=== PATIENT | female | born 1990 | race African-American/Black ===

== ENCOUNTER 2019-03-20 08:35 | Emergency (ER) | payer OTHER ==
--- OUTSIDE RECORDS SUMMARY | 2019-03-20 08:40 | XMS REPORT | Continuity of Care Document ---
:1990 External Reference #:[id number] Author Name ShyannMAXIMINO Mistry-Cde (transmitted by agent of provider Rose Carroll) Address [address], [place] [address] Care Team Providers Name Role Phone Michel Jones III, MD - Internal Care Team Information Area Director Medicine Aaron Sanchez MD - Otolaryngology Care Team Information Area Director [phone] Problems Active Problems Provider Date Neuralgia Angelika Marker, RPA-C Onset: 01/30/2018 Social History Type Date Description Comments Sex Unknown Tobacco Use Start: Unknown Never Smoked Cigarettes Smoking Status Reviewed: 02/05/19 Never Smoked Cigarettes ETOH Use Denies alcohol use Tobacco Use Start: Unknown Patient has never smoked Recreational Drug Use Denies Drug Use Exercise Type/Frequency 08/27/2016 Exercises regularly Used to runs 5x /week On hold now b/o lack of time Allergies, Adverse Reactions, Alerts Description No Known Drug Allergies Medications Active Medications SIG Qnty Indications Ordering Provider Date Tylenol 2 tablets every 4 Unknown 325mg Capsules hours as needed for pain Immunizations CPT Code Status Date Vaccine Lot # [id number] Given 08/27/2016 Meningococcal Immunization [id number] Given 08/27/2016 Varicella (Chicken Pox) Immunization [id number] Given 08/27/2016 Tdap - Tetanus/Diptheria/Acellular Pertussis [id number] Vital Signs Date Vital Result Comment 02/05/2019 3:26pm Height 65.5 inches 5'5.50" Weight 168.00 lb Heart Rate 74 /min BP Systolic 123 mmHg BP Diastolic 84 mmHg O2 % BldC Oximetry 99 % BMI (Body Mass Index) 27.5 kg/m2 Last Menstrual Period [id number] 08/06/2018 4:35pm Height 65.5 inches 5'5.50" Weight 168.00 lb Heart Rate 90 /min BP Systolic Sitting 110 mmHg BP Diastolic Sitting 70 mmHg O2 % BldC Oximetry 99 % BMI (Body Mass Index) 27.5 kg/m2 Results Description No Information Available Procedures Description No Information Available Medical Devices Description No Information Available Encounters Description No Information Available Assessments Date Code Description Provider 02/05/2019 R10.2 Pelvic and perineal pain [address] Plan of Treatment Future Appointment(s):02/10/2019 11:40 am - MAXIMINO Mcgrath at [facility] MAXIM[facility]-[id number] Pelvic and perineal pain Functional Status Description No Information Available Mental Status Description No Information Available Referrals Description No Information Available
[2019-03-20 08:49] VITALS: BP 125/87
--- NOTE | 2019-03-20 09:07 | UC ---
Complaint Female HPI - HPI Summary HPI Summary: 29-year-old female who has had burning on urination and frequency for the past 3 days. She denies any fever or chills. No nausea vomiting or diarrhea. She is sexually active and not on control. Denies any abnormal vaginal discharge. - History Of Current Complaint Chief Complaint: UCGU Stated Complaint: URINARY COMPLAINT Time Seen by Provider: 03/20/19 08:38 Hx Obtained From: Patient Hx Last Menstrual Period: 03/08/19 ?: No Onset/Duration: Gradual Onset Timing: Intermittent Severity Initially: Mild Severity Currently: Mild Pain Intensity: 4 Character: Burning Aggravating Factor(s): Urination Alleviating Factor(s): Nothing Associated Signs And Symptoms: Positive: Negative. Negative: Fever, Back Pain, Vaginal Bleeding/Discharge, Vaginal Discharge, Genital Swelling, Genital Blisters - Allergies/Home Medications Allergies/Adverse Reactions: Allergies Allergy/AdvReac Type Severity Reaction Status Date / Time No Known Allergies Allergy Verified 03/20/19 08:49 PMH/Surg Hx/FS Hx/Imm Hx Previously Healthy: Yes - Surgical History Surgical History: None - Family History Known Family History: Positive: Non-Contributory - Social History Alcohol Use: Occasionally Substance Use Type: None Smoking Status (MU): Never Smoked Tobacco Review of Systems All Other Systems Reviewed And Are Negative: Yes Genitourinary: Positive: Dysuria, Frequency, Other - Patient states she has pelvic pain which is not anything new and she is following up with her [employer] regarding this.. Negative: Vaginal/Penile Burning, Vaginal/Penile Itching, Vaginal/Penile Discharge, Vaginal/Penile Pain, Vaginal/Penile Tenderness Is Patient Immunocompromised?: No Physical Exam Triage Information Reviewed: Yes Appearance: Well-Appearing, No Pain Distress, Well-Nourished Vital Signs: Initial Vital Signs Temp 97.8 F 03/20/19 08:42 Pulse 56 03/20/19 08:42 Resp 12 03/20/19 08:42 BP 125/87 03/20/19 08:42 Pulse Ox 100 03/20/19 08:42 Vital Signs Reviewed: Yes Eyes: Positive: Conjunctiva Clear ENT: Positive: Pharynx normal, TMs normal, Uvula midline Neck: Positive: Supple, Nontender, No Lymphadenopathy Respiratory: Positive: Lungs clear, Normal breath sounds, No respiratory distress, No accessory muscle use Cardiovascular: Positive: RRR, No Murmur, Pulses Normal, Brisk Capillary Refill Abdomen Description: Positive: No Organomegaly, Soft, Other: - Tenderness on palpation in the suprapubic area which patient states is her normal pelvic tenderness for which she is seeking treatment and is not a concern today.. Negative: CVA Tenderness (R), CVA Tenderness (L), Distended, Guarding Bowel Sounds: Positive: Present Musculoskeletal Exam: Normal Neurological Exam: Normal Psychological Exam: Normal Skin Exam: Normal Complaint Female Dx - Course Course Of Treatment: Urinalysis: Positive for urinary tract infection. test: Negative I'm going to treat the patient with Bactrim DS one tab by mouth twice a day 5 days. She refused Pyridium and stated that she was not having any spasms. She is to increase fluids and follow-up in the ER if any fever, chills, back pain, vomiting or worsening symptoms. - Differential Dx/Diagnosis Provider Diagnosis: UTI (urinary tract infection) Discharge ED - Sign-Out/Discharge Documenting (check all that apply): Patient Departure All imaging exams completed and their final reports reviewed: No Studies - Discharge Plan Condition: Fair Disposition: HOME Prescriptions: Sulfamethox/Trimethoprim DS* [Bactrim DS 800/160 TAB*] 1 tab PO BID 5 Days #10 tab Patient Education Materials: Urinary Tract Infection in Women (DC) Referrals: Shyann Penn NP, CNM [Primary Care Provider] - Additional Instructions: Increase fluids. Take the Bactrim with food. Go to the emergency room if you develop any fever, chills, back pain and vomiting unable keep the medication down. Follow-up with your primary care provider if no improvement in 3 or 4 days. - Billing Disposition and Condition Condition: FAIR Disposition: Home
== END 2019-03-20 09:15 | disposition home or self-care (01) ==
LOC: UCEAST 08:35
DX: N39.0 Urinary tract infection, site not specified (principal)
CPT/HCPCS: 81003; 84702; 87077; 87086; 87186; 99212; G0463